=== PATIENT | female | born 2005 | race African-American/Black ===

== ENCOUNTER → 2025-03-07 | Day surgery (SDC) | payer OTHER, MEDICARE ==
[~2025-03-07] MED LIST: ACETAMINOPHEN 1000 MG/100 ML 100 ML IV ONE; CEFAZOLIN SODIUM 2 GM ONE; DEXAMETHASONE SOD PHOS INJ 4 MG/ML SDV ONE; FENTANYL CITRATE/PF 100MCG/2 ML INJ ONE; LACTATED RINGER'S 1,000 ML ONE; MIDAZOLAM HCL 2 MG/2 ML VIAL ONE; ONDANSETRON HCL INJ 2MG/ML 2ML 2 MG/ML VIAL ONE; PROPOFOL IV EMULSION 10 MG/ML 20 ML VIAL ONE; SEVOFLURANE INHAL SOLN 250 ML PEN BTL ONE
[2025-03-07 14:30] VITALS: TEMP 98.6
[2025-03-07] MEDS: ACETAMINOPHEN/CODEINE 300MG - 30MG TAB ONE (15:00)
[2025-03-07 15:30] VITALS: BP 125/90; PULSE 67; RESP 16; O2SAT 97
== END | disposition home or self-care (01) ==
LOC: OR 12:13
PROVIDERS: ATTEND Podiatrist Foot & Ankle Surgery
DX: M67.472 Ganglion, left ankle and foot (principal); G58.8 Other specified mononeuropathies; F12.90 Cannabis use, unspecified, uncomplicated; Z68.36 Body mass index [BMI] 36.0-36.9, adult
CPT/HCPCS: 28090; 64704; 81025; 88304; J0131; J1100; J2250; J2405; J2704; J3010; J7121